=== PATIENT | male | born 1965 | race Caucasian/White ===

== ENCOUNTER 2024-06-01 18:02 | Day surgery (SDC) | payer MEDICAID, SELFPAY ==
[2024-06-01] VITALS (12 sets, daily range): BP systolic 123–178; BP diastolic 48–94; PULSE 83–117; RESP 18–97; TEMP 36.6–36.7; O2SAT 93–100
--- NOTE | ~2024-06-01 | XR_ITS ---
EXAMINATION: XR chest 1V portable Exam Date/Time: 06/01/2024 18:43 CDT HISTORY: sob, food bolus Comparison: 07/17/2015. RESULT: Lines, tubes, and devices: Partially visualized spinal hardware. Punctate radiopacities project over the left shoulder, and chronic finding. Lungs and pleura: Clear. Cardiomediastinal silhouette: Stable. Other: No acute osseous or upper abdominal finding. IMPRESSION: No acute cardiopulmonary process. Reviewed, dictated and finalized at location K.
--- OUTSIDE RECORDS SUMMARY | 2024-06-01 18:05 | XMS_ITS | Encounter Summary ---
Author Organization [facility] Address [address] [place] [address] Care Team Providers Care Assayer Helper Name Role Phone Estevan Sabillon MD Primary Care Provider Ibrahima enamorado Encounter Details Date Type Department Care Team (Latest Contact Info) Description 01/08/2018 Abstract [facility] , Tatiana Coates MD Social History Tobacco Use Types Packs/Day Years Used Date Smoking Tobacco: Never Assessed Sex and Gender Information Value Date Recorded Sex Assigned at Not on file Legal Sex Male 8:42 PM CDT Gender Identity Not on file Sexual Orientation Not on file documented as of this encounter Plan of Treatment Not on file documented as of this encounter Visit Diagnoses Not on filedocumented in this encounter Care Teams Assayer Helper Relationship Specialty Start Date End Date Estevan Sabillon MD PCP - General 09/17/14 documented as of this encounter
--- OUTSIDE RECORDS SUMMARY | 2024-06-01 18:05 | XMS_ITS | Clinical Summary ---
Author Organization [facility] Address [address] [place] [address] Care Team Providers Care Cylinder Block Hole Reliner Name Role Phone Rich Guevara RN Primary Care Provider Ibrahima enamorado Source Comments [facility]non-owned Affiliates and Associated Physician Practices is amultiple site organization consisting of ambulatory clinics and hospital sitesin [place], [place], [place] and [place]. This disclosure is being madepursuant to the Care Everywhere program and may not contain all information available regarding this patient. Last updated 17.[facility] Medications * Be aware that medications may not be up to date on this document. Alwaysverify current medications with the patient. Medication Sig Dispensed Refills Start Date End Date Status oxyCODONE-acetaminophe n (PERCOCET) 10-325 MG tablet Take 1 tablet by mouth q4h PRN. 04/17/2016 Active Social History Tobacco Use Types Packs/Day Years Used Date Smoking Tobacco: Every Day Sex and Gender Information Value Date Recorded Sex Assigned at Not on file Gender Identity Not on file Sexual Orientation Not on file Last Filed Vital Signs Vital Sign Reading Time Taken Comments Blood Pressure - - Pulse - - Temperature - - Respiratory Rate - - Oxygen Saturation - - Inhaled Oxygen Concentration - - Weight 65.8 kg (145 lb) 04/17/2016 10:12 AM MARKET CONSULTANT Height 167.6 cm (5' 6 ) 04/17/2016 10:12 AM MARKET CONSULTANT Body Mass Index 23.4 04/17/2016 10:12 AM MARKET CONSULTANT Plan of Treatment Health Maintenance Due Date Last Done Comments COLOGUARD (AGES 45-75) - COL ON CA SCREENING 1964 COLON MONITORING 1964 COLONOSCOPY - COLON CA SCREENING 1964 CT COLONOGRAPHY - COLON CA SCREENING 1964 Colorectal Cancer Screening 1964 FIT - COLON CA SCREENING 1964 FLEX SIG - COLON CA SCREENING 1964 LIPID TESTING 1964 HIV SCREENING 11/02/1979 HEPATITIS C SCREENING 10/28/1982 DTAP/TDAP/TD VACCINES (1 - Tdap) 11/02/1983 HEPATITIS B VACCINE (1 of 3 - 19+ 3-dose series) 11/02/1983 PNEUMOCOCCAL VACCINE (1 of 2 - PCV) 11/02/1983 PNEUMOCOCCAL VACCINE 50+ (1 of 1 - PCV) 2014 ZOSTER VACCINE (1 of 2) 2014 COVID-19 VACCINE (1 - 2023-2 5 season) 2023 INFLUENZA VACCINE (#1) 2023 DEPRESSION SCREENING 03/05/2024 HIB VACCINE Aged Out No longer eligi ble based on patient's age to complete this topic HPV VACCINE Aged Out No longer eligi ble based on patient's age to complete this topic MENINGOCOCCAL (Group B) VACC INE SHARED DECISION-MAKING Aged Out No longer eligibl e based on patient's age to complete this topic MENINGOCOCCAL GROUPS A/C/Y/W VACCINE Aged Out No longer eligible b ased on patient's age to complete this topic Care Teams Cylinder Block Hole Reliner Relationship Specialty Start Date End Date Rich Guevara, RN PCP - General 04/17/16
--- OUTSIDE RECORDS SUMMARY | 2024-06-01 18:05 | XMS_ITS | Clinical Summary ---
Author Organization [facility] Address [address] [place] [address] Phone Care Team Providers Care Spanner Operator Name Role Phone Unavailable Primary Care Provider Unavailabl e Allergies No known active allergies Medications gabapentin (NEURONTIN) 300 MG CapsuleIndicati ons:Chronic pain syndrome Take 1 Cap by mouth 2 times daily. Start with one nightly for 1 week, then may increase to the BID dosing as above. 60 Cap 1 8 Active cyclobenzaprine (FLEXERIL) 10 MG TabletIndicatio ns:Chronic pain syndrome Take 1 Tab by mouth 3 times daily as needed for Muscle spasms. Muscle Relaxant; causes drowsiness 90 Tab 8 Active Active Problems Problem Noted Date Diagnosed Date History of lumbar spinal fusion 06/18/2017 History of thoracic spinal fusion 06/18/2017 Marijuana user 06/18/2017 Chronic midline low back pain without sciatica 0 06/18/2017 Chronic pain syndrome 06/18/2017 Family History Medical History Relation Name Comments No Known Problems Father Cancer Mother Relation Name Status Comments Father Mother Alive Social History Tobacco Use Types Packs/Day Years Used Date Smoking Tobacco: Every Day Smokeless Tobacco: Never Alcohol Use Standard Drinks/Week Comments No 0 (1 standard drink = 0.6 oz pur e alcohol) Sex and Gender Information Value Date Recorded Sex Assigned at Not on file Legal Sex Male 9:43 AM LINING CLEANER Gender Identity Not on file Sexual Orientation Not on file Last Filed Vital Signs Vital Sign Reading Time Taken Comments Blood Pressure 108/70 06/18/2017 2:40 PM CDT Pulse 87 06/18/2017 2:40 PM CDT Temperature 36 C (96.8 F) 06/18/2017 2:40 PM CDT Respiratory Rate 20 06/18/2017 2:40 PM CDT Oxygen Saturation 98% 06/18/2017 2:40 PM CDT Inhaled Oxygen Concentration - - Weight 63.2 kg (139 lb 4.8 oz) 06/18/2017 2:40 P M CDT Height 167.6 cm (5' 6 ) 06/18/2017 2:40 PM CDT Body Mass Index 22.48 06/18/2017 2:40 PM CDT Plan of Treatment Health Maintenance Due Date Last Done Comments Hepatitis C Virus (HCV) Screening 1964 TdaP Immunization 1964 Hepatitis B Immunization (1 of 3 - 19+ 3-dose series) 11/02/1983 Colonoscopy 2009 Colorectal Cancer Screening 2009 Cologuard 2014 Immunochemical Fecal Occult Blood 2014 Pneumococcal Immunization (5 0+ years) (1 of 1 - PCV) 2014 Zoster Immunization (1 of 2) 2014 Influenza Immunization (#1) 2023 SARS-COV-2 Immunization ( - season) 2023 Respiratory Syncytial Virus (RSV) Immunization (Adult) (1 - 1-dose 75+ series) 11/02/2039 Meningococcal Immunization (ACWY) Aged Out No longer eligible based on patient's age to complete this topic Rotavirus Immunization Aged Out No lo nger eligible based on patient's age to complete this topic Insurance MEDICAID [employer]
--- OUTSIDE RECORDS SUMMARY | 2024-06-01 18:05 | XMS_ITS | Clinical Summary ---
Author Organization [facility] Address [address] [place] [address] Care Team Providers Care Senior User Experience Architect Name Role Phone Estevan Sabillon MD Primary Care Provider Ibrahima lable Allergies No known active allergies Medications No known medications Active Problems Problem Noted Date Diagnosed Date Purposeful non-suicidal drug ingestion, initial encounter ([facility]) 04/28/2018 Immunizations Name Administration Dates Next Due Afluria 36 MONTHS+ (Prefille d Syringe IIV4) 04/29/2018(Deferred: Patient/family declined) Social History Tobacco Use Types Packs/Day Years Used Date Smoking Tobacco: Every Day Cigarettes 1 40 Smokeless Tobacco: Never Alcohol Use Standard Drinks/Week Comments No 0 (1 standard drink = 0.6 oz pur e alcohol) AUDIT-C Answer Date Recorded Frequency of Alcohol Consumption Never 04/28/2018 Average Number of Drinks Not on file 019 Frequency of Binge Drinking Not on file 04/06 Sex and Gender Information Value Date Recorded Sex Assigned at Not on file Legal Sex Male 8:42 PM CDT Gender Identity Not on file Sexual Orientation Not on file Last Filed Vital Signs Vital Sign Reading Time Taken Comments Blood Pressure 126/77 04/30/2018 3:12 PM PRODUCE WRAPPER Pulse 89 04/30/2018 3:12 PM PRODUCE WRAPPER Temperature 36.4 C (97.5 F) 04/30/2018 3:12 PM PRODUCE WRAPPER Respiratory Rate 17 04/30/2018 3:12 PM PRODUCE WRAPPER Oxygen Saturation 96% 04/30/2018 3:12 PM PRODUCE WRAPPER Inhaled Oxygen Concentration - - Weight 69 kg (152 lb 1.9 oz) 04/30/2018 5:00 AM PRODUCE WRAPPER Height 165.1 cm (5' 5 ) 04/28/2018 5:32 AM PRODUCE WRAPPER Body Mass Index 25.31 04/28/2018 5:32 AM PRODUCE WRAPPER Plan of Treatment Health Maintenance Due Date Last Done Comments Colorectal Cancer Screening Colonoscopy (10 Years) 1964 Annual Physical 11/02/1967 Pneumococcal Vaccine: Pediat rics (0 to 5 Years) and At-Risk Patients (6 to 64 Years) (1 of 2 - PCV) 1970 Hepatitis C 1982 DTaP, Tdap and Td Vaccines ( 1 - Tdap) 11/02/1983 Zoster Vaccines (1 of 2) 2014 COVID-19 Vaccine (1 - 2023-2 5 season) 2023 Meningococcal B Vaccine Aged Out No l onger eligible based on patient's age to complete this topic Meningococcal Vaccine Aged Out No suzan ke eligible based on patient's age to complete this topic RSV Immunizations Under 20 Months Aged Out No longer eligible based on patient's age to complete this topic Insurance Advance Directives * Full Code (Latest Code Status on File) Date Activated Date Inactivated Comments 04/28/2018 10:30 AM 04/30/2018 10:24 PM Care Teams Senior User Experience Architect Relationship Specialty Start Date End Date Estevan Sabillon MD PCP - General 09/17/14
--- NOTE | 2024-06-01 18:18 | ED.GENADULT ---
HPI - General Adult General Chief complaint: Unspecified <ESTRADA Herrera Last Filed: 06/01/24 20:47> Stated complaint: feels like throat closing-wheezing, SHOB <ESTRADA Herrera Last Filed: 06/01/24 20:47> Time Seen by Provider: 06/01/24 18:17 <ESTRADA Herrera Last Filed: 06/01/24 20:47> Source: patient <ESTRADA Herrera Last Filed: 06/01/24 20:47> Mode of arrival: ambulatory <ESTRADA Herrera Last Filed: 06/01/24 20:47> Limitations: no limitations <ESTRADA Herrera Last Filed: 06/01/24 20:47> History of Present Illness HPI narrative: Patient is a 58 y/o male who presents to the ED with c/o difficulty swallowing. Patient reports he was eating a [employer] hamburger around 1230-1pm today when he began having difficulty swallowing. States he vomited up the hamburger and has been unable to keep down food and drink since then. Having trouble keeping down his secretions. Reports frequent spitting, coughing, gagging. States he had similar symptoms in the past but has never had endoscopy. Had an episode yesterday which lasted approximately 30 minutes before resolving. Has previously been on gerd medication. Notes he was recently released from care home. <ESTRADA Herrera Last Filed: 06/01/24 20:47> Related Data Allergies/adverse reactions: Allergies Allergy/AdvReac Type Severity Reaction Status Date / Time No Known Allergies Allergy Verified 06/01/24 20:14 <ESTRADA Herrera Last Filed: 06/01/24 20:47> Review of Systems Review of Systems: All systems reviewed & are unremarkable except as noted in HPI. <ESTRADA Herrera Last Filed: 06/01/24 20:47> All systems reviewed & are unremarkable except as noted in HPI and below <ESTRADA Herrera Filed: 06/01/24 20:47> Exam Narrative: GENERAL: Ill/uncomfortable appearing, well-nourished, non-toxic, in no acute distress. HEAD: Normocephalic, atraumatic. RESPIRATORY: Airway patent, respirations tachypnea. Upper airway gurgling and borderline intermittent stridor. Frequent coughing and gagging. Lung sounds are relatively clear. CARDIOVASCULAR: Tachycardic with regular rhythm without murmurs, rubs, or gallops. MUSCULOSKELETAL: Moves all extremities. No gross deformities. SKIN: Warm, dry, normal color. NEURO: A&O X3. Speech clear PSYCHIATRIC: Appropriate mood and affect. Normal interaction. <Jacinta Hoyos PA-C - Last Filed: 06/01/24 20:47> Course CHUTE PULLER/PA Physician Supervision I agree with midlevel documentation; I performed the medical decision making component of this evaluation. I had independent [id number] time with the patient and performed my own independent evaluation and assessment. Patient presented with signs and symptoms of a food bolus impaction. He has had similar episodes like this happened over the past most recently yesterday but this was short-lived. Currently persistent. Is retching and vomiting with spitting up of clear phlegm at this time. Attempted conservative therapies including intramuscular glucagon and oral dissolved nitroglycerin for soft muscle dilatation of the esophagus. He immediately had vomiting upon trying to take any sips of water or solutions. C Consultant Dr. Naylor was made aware of patient's presentation and need for urgent endoscopy for suspected food bolus impaction given that he is vomited several times and had episodes of desaturation with concern for aspirate. Chest x-ray does not show any consolidations but could have some pneumonitis component. Endoscopy suite was activated. Please see dictation by midlevel provider for complete care. <Prakash Madrid MD - Last Filed: 06/01/24 21:11> Vital Signs Vital signs: Vital Signs Temperature 36.7 C 06/01/24 18:06 Pulse Rate 101 H 06/01/24 18:06 Respiratory Rate 97 H 06/01/24 18:06 Blood Pressure 142/85 H 06/01/24 18:06 Pulse Oximetry 97 06/01/24 18:06 Oxygen Delivery Room Air 06/01/24 18:06 Temperature 36.6 C 06/01/24 20:15 Pulse Rate 94 06/01/24 20:15 Respiratory Rate 20 06/01/24 20:15 Blood Pressure 132/68 06/01/24 20:15 Pulse Oximetry 96 06/01/24 20:15 Oxygen Delivery Room Air 06/01/24 20:15 <Jacinta Hoyos PA-C - Last Filed: 06/01/24 20:47> Vital Signs Temperature 36.7 C 06/01/24 18:06 Pulse Rate 101 H 06/01/24 18:06 Respiratory Rate 97 H 06/01/24 18:06 Blood Pressure 142/85 H 06/01/24 18:06 Pulse Oximetry 97 06/01/24 18:06 Oxygen Delivery Room Air 06/01/24 18:06 Temperature 36.6 C 06/01/24 20:15 Pulse Rate 94 06/01/24 20:15 Respiratory Rate 20 06/01/24 20:15 Blood Pressure 132/68 06/01/24 20:15 Pulse Oximetry 96 06/01/24 20:15 Oxygen Delivery Room Air 06/01/24 20:15 <Prakash Madrid MD - Last Filed: 06/01/24 21:11> Medical Decision Making MDM Narrative Medical decision making narrative: Patient presented to ED with concern for possible food bolus. Began after eating [employer] hamburger today. Having difficulty maintaining secretions. Unable to keep down any food or drink. Attempted glucagon and nitroglycerin solution. Patient immediately began vomiting with any attempt at swallowing even small sips of water. Forceful coughing and gagging. Did have an episode of forceful coughing in which his oxygen saturation dropped briefly into the mid 80s. He did rebound quickly and no supplemental oxygen was required. Chest x-ray is clear at this time. Discussed case with Dr. Naylor, GI, will take to endoscopy suite for suspected food bolus. Patient in agreement with plan. From ED to GI suite. <ESTRADA Herrera Last Filed: 06/01/24 20:47> Medical Records Medical records reviewed: Yes I reviewed the external patient's medical records. <ESTRADA Herrera Last Filed: 06/01/24 20:47> Vital Signs Vital Signs: Vital Signs Temperature 36.7 C 06/01/24 18:06 Pulse Rate 101 H 06/01/24 18:06 Respiratory Rate 97 H 06/01/24 18:06 Blood Pressure 142/85 H 06/01/24 18:06 Pulse Oximetry 97 06/01/24 18:06 Oxygen Delivery Room Air 06/01/24 18:06 Temperature 36.6 C 06/01/24 20:15 Pulse Rate 94 06/01/24 20:15 Respiratory Rate 20 06/01/24 20:15 Blood Pressure 132/68 06/01/24 20:15 Pulse Oximetry 96 06/01/24 20:15 Oxygen Delivery Room Air 06/01/24 20:15 <Jacinta Hoyos PA-C - Last Filed: 06/01/24 20:47> Vital Signs Temperature 36.7 C 06/01/24 18:06 Pulse Rate 101 H 06/01/24 18:06 Respiratory Rate 97 H 06/01/24 18:06 Blood Pressure 142/85 H 06/01/24 18:06 Pulse Oximetry 97 06/01/24 18:06 Oxygen Delivery Room Air 06/01/24 18:06 Temperature 36.6 C 06/01/24 20:15 Pulse Rate 94 06/01/24 20:15 Respiratory Rate 20 06/01/24 20:15 Blood Pressure 132/68 06/01/24 20:15 Pulse Oximetry 96 06/01/24 20:15 Oxygen Delivery Room Air 06/01/24 20:15 <Prakash Madrid MD - Last Filed: 06/01/24 21:11> Imaging Data Attestation: I personally reviewed and interpreted this imaging study as follows: <Jacinta Hoyos PA-C - Last Filed: 06/01/24 20:47> Radiologist's impression: ITS Impressions Chest X-Ray 06/01/24 19:11 IMPRESSION: No acute cardiopulmonary process. <ESTRADA Herrera Last Filed: 06/01/24 20:47> Discharge Plan Discharge Clinical Impression: Food impaction of esophagus Qualifiers: Encounter type: initial encounter Qualified Code(s): T18.128A - Food in esophagus causing other injury, initial encounter <ESTRADA Herrera Last Filed: 06/01/24 20:47> Patient Disposition: Other <ESTRADA Herrera Last Filed: 06/01/24 20:47> Condition: Serious <ESTRADA Herrera Last Filed: 06/01/24 20:47> Instructions: Antibiotic Form <ESTRADA Herrera Last Filed: 06/01/24 20:47> Patient Language: Citizen Of [place] <ESTRADA Herrera Last Filed: 06/01/24 20:47> Follow-up/Referrals: PHYSICIAN NOT ON STAFF,NONSTAFF [Primary Care Provider] - <ESTRADA Herrera Last Filed: 06/01/24 20:47>
[2024-06-01] MEDS: ONDANSETRON INJ 4 MG/2 ML VIAL IV PUSH (18:30)
[2024-06-01] MEDS: NITROGLYCERIN SL 0.4 MG TABLET SUBLINGUAL (18:31)
[2024-06-01] MEDS: GLUCAGON FOR INJ 1 MG VIAL IM (18:31)
--- OUTSIDE RECORDS SUMMARY | 2024-06-01 19:53 | XMS_ITS | Clinical Summary ---
Author Organization [facility] Address [address] [place] [address] Care Team Providers Care Balance Clerk Name Role Phone Estevan Sabillon MD Primary Care Provider Ibrahima lable Allergies No known active allergies Medications No known medications Active Problems Problem Noted Date Diagnosed Date Purposeful non-suicidal drug ingestion, initial encounter ([facility]) 04/28/2018 Immunizations Name Administration Dates Next Due [...] Comments Blood Pressure 126/77 04/30/2018 3:12 PM CONSTRUCTION MANAGER Pulse 89 04/30/2018 3:12 PM CONSTRUCTION MANAGER Temperature 36.4 C (97.5 F) 04/30/2018 3:12 PM CONSTRUCTION MANAGER Respiratory Rate 17 04/30/2018 3:12 PM CONSTRUCTION MANAGER Oxygen Saturation 96% 04/30/2018 3:12 PM CONSTRUCTION MANAGER Inhaled Oxygen Concentration - - Weight 69 kg (152 lb 1.9 oz) 04/30/2018 5:00 AM CONSTRUCTION MANAGER Height 165.1 cm (5' 5 ) 04/28/2018 5:32 AM CONSTRUCTION MANAGER Body Mass Index 25.31 04/28/2018 5:32 AM CONSTRUCTION MANAGER Plan of Treatment Health Maintenance Due Date [...] 10:30 AM 04/30/2018 10:24 PM Care Teams Balance Clerk Relationship Specialty Start Date End Date Estevan Sabillon MD PCP - General 09/17/14
--- OUTSIDE RECORDS SUMMARY | 2024-06-01 19:53 | XMS_ITS | Clinical Summary ---
Author Organization [facility] Address [address] [place] [address] Care Team Providers Care Central Supply Manager Name Role Phone Rich Guevara RN Primary Care Provider Ibrahima enamorado Source Comments [facility],non-owned Affiliates and Associated Physician Practices is amultiple site organization consisting of ambulatory clinics and hospital sitesin [place], [place], [place] and [place]. This disclosure is being madepursuant to the Care Everywhere program and may not contain all information available regarding this patient. Last updated 17.[facility] Medications * Be aware that medications may [...] 65.8 kg (145 lb) 04/17/2016 10:12 AM FISHING GAME WARDEN Height 167.6 cm (5' 6 ) 04/17/2016 10:12 AM FISHING GAME WARDEN Body Mass Index 23.4 04/17/2016 10:12 AM FISHING GAME WARDEN Plan of Treatment Health Maintenance Due Date [...] age to complete this topic Care Teams Central Supply Manager Relationship Specialty Start Date End Date Rich Guevara, RN PCP - General 04/17/16
--- OUTSIDE RECORDS SUMMARY | 2024-06-01 19:53 | XMS_ITS | Encounter Summary ---
Author Organization [facility] Address [address] [place] [address] Care Team Providers Care Chief Operating Officer Name Role Phone Estevan Sabillon MD Primary Care Provider Ibrahima enamorado Encounter Details Date Type Department Care Team (Latest Contact Info) Description 01/08/2018 Abstract [facility] , Tatiana Coates MD [...] on filedocumented in this encounter Care Teams Chief Operating Officer Relationship Specialty Start Date End Date Estevan Sabillon MD PCP - General 09/17/14 documented as of this encounter
--- OUTSIDE RECORDS SUMMARY | 2024-06-01 19:53 | XMS_ITS | Clinical Summary ---
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
--- NOTE | 2024-06-01 19:55 | PC.NURSE ---
patient notified by this rn to find a ride home for after procedure. pt verbalized understanding at this time.
[2024-06-01] MEDS: LACTATED RINGERS 1,000 ML 150 ML IV CONT (20:20)
--- OUTSIDE RECORDS SUMMARY | 2024-06-01 21:27 | XMS_ITS | Clinical Summary ---
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
--- OUTSIDE RECORDS SUMMARY | 2024-06-01 21:27 | XMS_ITS | Clinical Summary ---
Author Organization [facility] Address [address] [place] [address] Care Team Providers Care Hot Plate Plywood Press Laborer Name Role Phone Estevan Sabillon MD Primary Care Provider Ibrahima lable Allergies No known active allergies Medications No known medications Active Problems Problem Noted Date Diagnosed Date Purposeful non-suicidal drug ingestion, initial encounter ([facility]) 04/28/2018 Immunizations Name Administration Dates [...] Comments Blood Pressure 126/77 04/30/2018 3:12 PM ECG TECHNICIAN Pulse 89 04/30/2018 3:12 PM ECG TECHNICIAN Temperature 36.4 C (97.5 F) 04/30/2018 3:12 PM ECG TECHNICIAN Respiratory Rate 17 04/30/2018 3:12 PM ECG TECHNICIAN Oxygen Saturation 96% 04/30/2018 3:12 PM ECG TECHNICIAN Inhaled Oxygen Concentration - - Weight 69 kg (152 lb 1.9 oz) 04/30/2018 5:00 AM ECG TECHNICIAN Height 165.1 cm (5' 5 ) 04/28/2018 5:32 AM ECG TECHNICIAN Body Mass Index 25.31 04/28/2018 5:32 AM ECG TECHNICIAN Plan of Treatment Health Maintenance Due Date [...] 10:30 AM 04/30/2018 10:24 PM Care Teams Hot Plate Plywood Press Laborer Relationship Specialty Start Date End Date Estevan Sabillon MD PCP - General 09/17/14
--- OUTSIDE RECORDS SUMMARY | 2024-06-01 21:27 | XMS_ITS | Encounter Summary ---
Author Organization [facility] Address [address] [place] [address] Care Team Providers Care Restaurant Associate Name Role Phone Estevan Sabillon MD Primary Care Provider Ibrahima enamorado Encounter Details Date Type Department Care Team (Latest Contact Info) Description 01/08/2018 Abstract [facility] , Tatiana Coates MD [...] on filedocumented in this encounter Care Teams Restaurant Associate Relationship Specialty Start Date End Date Estevan Sabillon MD PCP - General 09/17/14 documented as of this encounter
--- OUTSIDE RECORDS SUMMARY | 2024-06-01 21:27 | XMS_ITS | Clinical Summary ---
Author Organization [facility] Address [address] [place] [address] Care Team Providers Care Pharmaceutical Detailer Name Role Phone Rich Guevara RN Primary Care Provider Ibrahima enamorado Source Comments [facility],non-owned Affiliates and Associated Physician Practices is amultiple site organization consisting of ambulatory clinics and hospital sitesin [place], [place], [place] and [place]. This disclosure is being madepursuant to the Care Everywhere program and may not contain all information available regarding this patient. Last updated 17.[facility] Medications * Be aware that medications may [...] 65.8 kg (145 lb) 04/17/2016 10:12 AM VIDEO JOURNALIST Height 167.6 cm (5' 6 ) 04/17/2016 10:12 AM VIDEO JOURNALIST Body Mass Index 23.4 04/17/2016 10:12 AM VIDEO JOURNALIST Plan of Treatment Health Maintenance Due Date [...] age to complete this topic Care Teams Pharmaceutical Detailer Relationship Specialty Start Date End Date Rich Guevara, RN PCP - General 04/17/16
--- NOTE | 2024-06-03 15:18 | WPDGICN ---
Assessment and Plan Assessment and plan (1) Food impaction of esophagus: Qualifiers: Encounter type: initial encounter Qualified Code(s): T18.128A - Food in esophagus causing other injury, initial encounter; W44.F3XA - Food entering into or through a natural orifice, initial encounter Code(s): T18.128A - Food in esophagus causing other injury, initial encounter; W44.F3XA - Food entering into or through a natural orifice, initial encounter Status: Acute Assessment and Plan: Evidence of food impaction, the plan is to perform EGD with anesthesia assistance, likely intubation. GI Consult Note Consult date/time: 06/03/24 15:18 - note corresponding to History and Physical from 06/01/24 HPI: Maxx Gastelum is a 58 year old male who has been experiencing intermittent dysphagia, progressive worsening. This afternoon he was eating a cheeseburger and felt that he could not swallow any more food , liquids or even his own saliva. He is here for food impaction after emergency room staff has tried many noninvasive measures such as glucagon and nitroglycerin. Review of Systems Review of Systems: All systems reviewed & are unremarkable except as noted in HPI and below Meds Home Medications and Allergies Home Medications ?Medication ?Instructions ?Recorded ?Confirmed ?Type omeprazole 40 mg capsule,delayed 40 mg PO DAILY #30 caps 06/02/24 Rx release Allergies Allergy/AdvReac Type Severity Reaction Status Date / Time No Known Allergies Allergy Verified 06/01/24 20:14 Exam Narrative: GENERAL: Ill/uncomfortable appearing, well-nourished, non-toxic, in no acute distress. HEAD: Normocephalic, atraumatic. RESPIRATORY: Airway patent, respirations tachypnea. Upper airway gurgling and borderline intermittent stridor. Frequent coughing and gagging. Lung sounds are relatively clear. CARDIOVASCULAR: Tachycardic with regular rhythm without murmurs, rubs, or gallops. MUSCULOSKELETAL: Moves all extremities. No gross deformities. SKIN: Warm, dry, normal color. NEURO: A&O X3. Speech clear PSYCHIATRIC: Appropriate mood and affect. Normal interaction.
== END 2024-06-01 22:12 | disposition home or self-care (01) ==
LOC: ANHED 19:51 → ANHSURGERY 21:25
PROVIDERS: Emergency Provider Physician Assistant; Visit Provider Internal Medicine Gastroenterology
PROC: 0DJ08ZZ Inspection of Upper Intestinal Tract, Via Natural or Artificial Opening Endoscopic (ICD-10-PCS; CPT 43247; principal; 2024-06-01 20:00)
DX: T18.128A Food in esophagus causing other injury, initial encounter (principal); K22.70 Barrett's esophagus without dysplasia; K21.00 Gastro-esophageal reflux disease with esophagitis, without bleeding; W44.F3XA Food entering into or through a natural orifice, initial encounter
CPT/HCPCS: 43247; 43239; 71045; 88305; 96372; 96374; 99285; A9270; J0330; J1100; J1610; J2405; J2704; J7120

== ENCOUNTER 2024-10-25 19:30 | Emergency (ER) | payer OTHER, SELFPAY ==
--- OUTSIDE RECORDS SUMMARY | 2013-07-06 12:27 | XMS_ITS | Continuity of Care Document ---
Author Organization [facility] Address [address] [place] [address] [place] [address] Phone Care Team Providers Care Conversion Man Name Role Phone Chandler Miller MD Unavailable Unavailable Allergies, Adverse Reactions, Alerts Substance Reaction Status Criticality No Known Allergies Active No Inform ation Medications Medication Instructions Dosage Effective Dates (start - stop) Status Comments Percocet 10 mg-325 mg tablet take 1 tablet by oral route every 6 hours as needed 1.00 tablet - Active PRN for pain, avoid driving or operate machines Lexapro 10 mg tablet take 1 tablet (10MG) by oral route every day 10 MG - Active Procedures Procedure Date OFFICE/OUTPATIENT VISIT, EST PREV VISIT, NEW, AGE 40-64 Advance Directives Directive Yes / No Effective Date File Name No Information Encounters Encounter Description Practice Location Reason(s) For Visit Diagnoses Date Provider Providers Copied on Encounter [facility], [address] [place], [address], tel:[phone] [facility] No Information 4 Paul Arteaga. [address], [place], [place], [address] , [place]. tel:[phone] Referring Provider: Chandler Miller, [address], [place], [place], [address]. tel:[phone] OFFICE/OUTPAT IENT VISIT, EST [facility], [address] [place], [address], tel:[phone] [facility] back pain (chief complaint) hematuria (chief complaint) anxiety (chief complaint) LumbagoMajor depressive affective disorder, single episode, mild degreeHEMATURIA NOS 4 Paul [facility]aga. [address] [facility] [place], [address] , . tel:[phone] Referring Provider: Chandler Miller [address], [place], [place], [address]. tel:[phone] PREV VISIT, NEW, AGE 40-64 [facility], [address], [place], [place], [address], [phone] [facility] Physical (chief complaint) Routine Medical ExamRoutine Medical Exam 4 Paul Arteaga. [address], [facility] [place], [address] , [place]. tel:[phone] Family History Family Member Type Diagnosis Age At Onset Mother Problem (finding) Coronary artery disease Mother Problem (finding) Other Sister Problem (finding) Cancer, brain Mother Problem (finding) Cancer, breast Father Problem (finding) Alzheimer's Disease Payers Payer name Insurance type Covered constitution party ID Authoriza tion(s) No Information Social History Type Description Quantity Date Captured Comments Sex Male Smoking Status No Information Chief Complaint And Reason For Visit No Information Plan Of Treatment Date Type Action Status Goal Tobacco cessation counseling completed Goal Tobacco cessation counseling completed History Of Present Illness Encounter Date Complaint History Of Prese nt Illness No Information Instructions Date Instruction Additional Infor mation No Information Assessments Type Assessment Date No Information
--- OUTSIDE RECORDS SUMMARY | 2013-07-06 12:27 | XMS_ITS | Continuity of Care Document ---
Author Organization [facility] Address [address] [place] [address] [place] [address] Phone Care Team Providers Care Threat Analyst Name Role Phone Chandler Miller MD Unavailable Unavailable Allergies, Adverse Reactions, Alerts Substance Reaction Status Criticality No Known Allergies Active No Inform ation Medications Medication Instructions Dosage Effective Dates (start - stop) Status Comments Lexapro 10 mg tablet take 1 tablet (10MG) by oral route every day 10 MG - Active Percocet 10 mg-325 mg tablet take 1 tablet by oral route every 6 hours as needed 1.00 tablet - Active PRN for pain, avoid driving or operate machines Procedures Procedure Date OFFICE/OUTPATIENT VISIT, EST PREV VISIT, NEW, AGE 40-64 Advance Directives Directive Yes / No Effective Date File Name No Information Encounters Encounter Description Practice Location Reason(s) For Visit Diagnoses Date Provider Providers Copied on Encounter [facility], [address] [place], [address], tel:[phone] [facility] No Information 4 Paul Arteaga. [address], [place], [place], [address] , [place]. tel:[phone] Referring Provider: Chandler Miller, [address], [place], [place], [address]. tel:[phone] OFFICE/OUTPAT IENT VISIT, EST [facility], [address] [place], [address], tel:[phone] [facility] back pain (chief complaint) hematuria (chief complaint) anxiety (chief complaint) LumbagoMajor depressive affective disorder, single episode, mild degreeHEMATURIA NOS 4 Paul Arteaga. [address] [facility] [place], [address] , . tel:[phone] Referring Provider: Chandler Miller [address], [place], [place], [address]. tel:[phone] PREV VISIT, NEW, AGE 40-64 [facility], [address], [place], [place], [address], [phone] [facility] Physical (chief complaint) Routine Medical ExamRoutine Medical Exam 4 Paul Arteaga. [address], [facility] [place], [address] , [place]. tel:[phone] Family History Family Member Type Diagnosis Age [...]
--- NOTE | ~2024-10-25 | XR_ITS ---
XR elbow RT min 3V 10/25/2024 20:42 Indication: Dog bite Procedure: 3 views right elbow Comparison: 01/19/2021 Findings: No acute fracture or traumatic malalignment. There is soft tissue gas adjacent to the elbow, consistent with recent dogbite. No foreign bodies. Impression: 1: Subcutaneous gas adjacent to the elbow, consistent with recent dogbite. No underlying fracture. Reviewed, dictated and finalized at location O. Impression: 1: Subcutaneous gas adjacent to the elbow, consistent with recent dogbite. No u nderlying fracture.
--- OUTSIDE RECORDS SUMMARY | 2024-10-25 19:32 | XMS_ITS | Clinical Summary ---
Author Organization [facility] Address [address] [place] [address] Phone Care Team Providers Care Supervisor Shipfitters Name Role Phone Muna Jorge BEHZAD Primary Care Provider [phone] Allergies No known active allergies Medications omeprazole (PriLOSEC) 40 mg capsule Take 1 capsule (40 mg total) by mouth daily 5 Active atorvastatin (LIPITOR) 80 mg tabletIndications:M ixed hyperlipidemia Take 1 tablet (80 mg total) by mouth daily 90 tablet [address] (CYMBALTA) 20 mg capsuleIndications: Chronic midline low back pain without sciatica Take 1 capsule (20 mg total) by mouth daily 30 capsule 3 5 Active bisacodyl EC (DULCOLAX EC) 5 mg EC tabletIndications:c onstipation Take 1 tablet (5 mg total) by mouth daily 8 tablet 5 Active Active Problems Problem Noted Date Diagnosed Date Screening for colon cancer 08/04/2024 Screen for colon cancer 07/04/2024 Wellness examination 06/25/2024 Assessment & Plan (06/25/2024 3:34 PM CDT): Routine health maintenance objectives discussed and orders placed for any outstanding screening studies. Physical exam performed as above. Routine annual labs obtained and will be reviewed with patient when results available. Encouraged regular physical activity--moderate activity for a total of 150 minutes per week over 3-5 days. Encouraged healthy diet with regular fresh fruits and vegetables limited in processed carbohydrates. Alcohol use Nicotine use Depression screening History of lumbar spinal fusion 06/24/2024 Overview (06/24/2024): Postoperative appearance of posterior spinal fusion consisting of paired Pedersen rods extending from T11 to L5 are seen with cerclage wires at the T12, L1, L2, and L4 vertebral bodies. There is 6 mm of retrolisthesis of L5 on S1. A compression fracture of L3 vertebral body is seen with approximately 75% height loss and mild kyphosis centered at the L3-L4 disc space. Multilevel degenerative disc disease is seen, most pronounced and moderate to severe at L5-S1. Atherosclerotic calcification of the abdominal aorta is seen. Assessment & Plan (06/25/2024 3:34 PM CDT): Orders: MRI Lumbar Spine WO Contrast; Future History of methamphetamine abuse 06/24/2024 Assessment & Plan (06/25/2024 3:34 PM CDT): Mixed hyperlipidemia 06/24/2024 Assessment & Plan (06/25/2024 3:34 PM CDT): Orders: atorvastatin (LIPITOR) 80 mg tablet; Take 1 tablet (80 mg total) by mouth daily Lipid panel; Future Chronic midline low back pain without sciatica 0 06/24/2024 Assessment & Plan (06/25/2024 3:34 PM CDT): Orders: DULoxetine DR (CYMBALTA) 20 mg capsule; Take 1 capsule (20 mg total) by mouth daily Ambulatory referral to Pain Management; Future MRI Lumbar Spine WO Contrast; Future BMI 26.0-26.9,adult 03/07/2022 Assessment & Plan (06/25/2024 3:34 PM CDT): Follow a heart healthy diet. Dysphagia 03/07/2022 Assessment & Plan (06/25/2024 3:34 PM CDT): Orders: Ambulatory referral to Gastroenterology; Future Resolved Problems Problem Noted Date Diagnosed Date Resolved Date Positive depression screening 03/07/2022 06/24/2024 Screening for thyroid disorder 03/07/2022 06/24/2024 Chronic pain syndrome 09/08/20152024 Encounters Date Type Department Care Team Description 08/04/2024 Orders Only [facility] Gastroenterology at [address] [place] [address] Arnol Santos MD Dysphagia, unspecified type (Primary Dx); Screening for colon cancer 07/30/2024 Telephone [facility] Gastroenterology at [address] [place] [address] Arnol Santos MD 07/29/2024 Orders Only [facility] Gastroenterology at [address] [place] [address] Arnol Santos MD Dysphagia, unspecified type (Primary Dx); Screen for colon cancer from Last 3 Months Immunizations Immunization Administration Dates Next Due Influenza, Unspecified 03/06/2022(Deferr ed: Patient Refused),03/07/2021(Deferred: Patient Refused) Surgical History Surgery Date Site/Laterality Comments OTHER SURGICAL HISTORY Left Left elbow reconstruction OTHER SURGICAL HISTORY Left Left Shoulder repaired OTHER SURGICAL HISTORY Left Steen, Knee and ankle surgery SPINAL FUSION Medical History Medical History Date Comments Cancer (HCC) Heart murmur Hyperlipidemia Family History Medical History Relation Name Comments Cancer Brother Stroke Father Breast cancer Mother Kidney disease Mother Brain cancer Sister Relation Name Status Comments Brother Father Mother Sister Social History Tobacco Use Types Packs/Day Years Used Date Smoking Tobacco: Every Day Cigarettes 0.5 44 Started: 1980 Passive Smoke Exposure: Current Smokeless Tobacco: Never Tobacco Cessation:Ready to Q uit: Not Asked; Counseling Given: Not Answered AUDIT-C Answer Date Recorded Q1: How often do you have a drink containing alcohol? Never 08/18/2024 Q2: How many drinks containi ng alcohol do you have on a typical day when you are drinking? Patient does not drink Q3: How often do you have si x or more drinks on one occasion? 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 Gender Identity Not on file Sexual Orientation Not on file Occupation Industry Job Start Date Job End Date disabled Not on file Not on file Not on file Obstetrics History Last Filed Vital Signs Vital Sign Reading Time Taken Comments Blood Pressure 110/68 06/24/2024 12:45 PM CDT Pulse 75 06/24/2024 12:45 PM CDT Temperature 36.4 C (97.5 F) 06/24/2024 12:45 PM CDT Respiratory Rate 16 06/24/2024 12:45 PM CDT Oxygen Saturation 98% 06/24/2024 12:45 PM CDT Inhaled Oxygen Concentration - - Weight 77.6 kg (171 lb) 06/24/2024 12:45 PM CDT Height 170.2 cm (5' 7) 06/24/2024 12:45 PM CDT Body Mass Index 26.78 06/24/2024 12:45 PM CDT Plan of Treatment Health Maintenance Due Date Last Done Comments Colon Cancer Screening-Colonoscopy 1964 DTaP/Tdap/Td Vaccine (1 - Tdap) 11/02/1975 Hepatitis B Screening 1982 Pneumococcal vaccine <65 (1 of 2 - PCV) 11/02/1983 Lung Cancer Screening 2014 Influenza Vaccine (#1) 2024 Depression Screening 06/24/2025 06/24/2024, 03/07/2022 Regular Well Visit/Exam 18-64 06/24/2025 06/24/2024 Zoster Vaccine (1 of 2) 06/24/2025 Post poned from 2014 (Patient declined, but will receive in the future) Prostate Cancer Screening-PSA 06/24/2026 06/24/2024 Hepatitis C Screening Completed 06/24/2024 Procedures Procedure Name Priority Date/Time Associated Diagnosis Comments HEPATITIS C ANTIBODY Routine 06/24/2024 1:30 PM CDT Need for hepatitis C screening test PSA SCREEN Routine 06/24/2024 1:30 PM CDT Screening for prostate cancer from Last 3 Months or Most Recently Relevant to Health Maintenance Results * PSA screen (06/24/2024 1:30 PM CDT) PSA-Total 0.34 <=3.90 ng/mL Comment: Interpretive Data AGE SEX REFERENCE INTERVAL 0 minutes-150 years Female None 0 minutes-49 years Male None 50-59 years Male 0-3.90 60-69 years Male 0-5.40 70-79 years Male 0-6.20 80-150 years Male 0-6.20 The Eliana PSA Total assay procedure was used. Results from different manufacturers or methods may not be comparable. Serial testing should be performed using the same method. Current interpretive data last revised 21. Blood 06/24/2024 1:30 PM CDT 06/24/2024 10:10 PM CDT [employer] SOLUTIONS CONSULTANT LAB BLOOD ORDERABLES Final Re sult Performing Organization Address [facility] Co de Phone Number ANJU AMBROCIO [id number] [place] [address] * Hepatitis C antibody Blood (06/24/2024 1:30 PM CDT) Hep C Ab Nonreactive Nonreactive Comment: Interpretive Data Nonreactive: Antibodies to HCV not detected. Does NOT exclude the possibility of recent exposure to HCV. Equivocal: Equivocal for HCV antibodies. Supplemental molecular testing will be automatically performed to determine infection status in accordance with current CDC screening recommendations. Reactive: Positive for HCV antibodies. This may represent current or past HCV infection. Supplemental molecular testing will be automatically performed to determine current infection status in accordance with current CDC screening recommendations. Interpretive data was last revised on 2019. Blood 06/24/2024 1:30 PM CDT 06/24/2024 10:10 PM CDT Muna Jorge NP LAB MICROBIOLOGY - GENERAL OR DERABLES Final Result ANEESHEVIN AMBROCIO [id number] [place] [address] from Last 3 Months or Most Recently Relevant to Health Maintenance Insurance [facility] [address] [address] Care Teams Supervisor Shipfitters Relationship Specialty Start Date End Date Muna Jorge NP [address] [address] PCP - General Internal Medicine 06/24/24
--- OUTSIDE RECORDS SUMMARY | 2024-10-25 19:32 | XMS_ITS | Clinical Summary ---
Author Organization [facility] Address [address] [place] [address] Care Team Providers Care Business System Consultant Name Role Phone Rich Guevara RN Primary Care Provider Ibrahima enamorado Source Comments [facility],non-owned Affiliates and Associated Physician Practices is amultiple site organization consisting of ambulatory clinics and hospital sitesin [place], [place], [place] and [place]. This disclosure is being madepursuant to the Care Everywhere program and may not contain all information available regarding this patient. Last updated 17.[facility] Medications * Be aware that medications may not be up to date on this document. Alwaysverify current medications with the patient. oxyCODONE-acetam inophen (PERCOCET) 10-325 MG tablet Take 1 tablet by mouth q4h PRN. 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 Gender Identity Not on file Sexual Orientation Not on file Last Filed Vital Signs Vital Sign Reading Time Taken Comments Blood Pressure - - Pulse - - Temperature - - Respiratory Rate - - Oxygen Saturation - - Inhaled Oxygen Concentration - - Weight 65.8 kg (145 lb) 04/17/2016 10:12 AM FENCE INSTALLER FOREMAN Height 167.6 cm (5' 6) 04/17/2016 10:12 AM FENCE INSTALLER FOREMAN Body Mass Index 23.4 04/17/2016 10:12 AM FENCE INSTALLER FOREMAN Plan of Treatment Health Maintenance Due Date [...] - 19+ 3-dose series) 11/02/1983 PNEUMOCOCCAL VACCINE 50+ (1 of 2 - PCV) 11/02/1983 ZOSTER VACCINE (1 of 2) 2014 COVID-19 VACCINE (1 - 2023-2 5 season) 2023 DEPRESSION SCREENING 03/05/2024 INFLUENZA VACCINE (#1) 2024 HIB VACCINE Aged Out No longer eligi [...] age to complete this topic Insurance MEDICAID - [place] SELF PAY NO INSURANCE Member Subscriber Plan / Payer (Ef fective for All Dates) Name:Maxx Gastelum Member ID:Not on file Relation to Subscriber:Not on file Name:MAXX GASTELUM Subscriber ID:Not on file (Home) Address: [address] [place] [address] Payer ID:Not on file Group ID:Not on file Type:Self Pay Address: [place], [place] Care Teams Business System Consultant Relationship Specialty Start Date End Date Rich Guevara RN PCP - General 04/17/16
--- OUTSIDE RECORDS SUMMARY | 2024-10-25 19:32 | XMS_ITS | Clinical Summary ---
Author Organization [facility] Address [address] [place] [address] Care Team Providers Care Scuba Diver Name Role Phone Estevan Sabillon MD Primary Care Provider Ibrahima lable Allergies No known active allergies Medications No known medications Active Problems Problem Noted Date Diagnosed Date Purposeful non-suicidal drug ingestion, initial encounter ([facility]) 04/28/2018 Immunizations Immunization Administration Dates Next Due Afluria 36 MONTHS+ [...] Comments Blood Pressure 126/77 04/30/2018 3:12 PM BRICKLAYER SUPERVISOR Pulse 89 04/30/2018 3:12 PM BRICKLAYER SUPERVISOR Temperature 36.4 C (97.5 F) 04/30/2018 3:12 PM BRICKLAYER SUPERVISOR Respiratory Rate 17 04/30/2018 3:12 PM BRICKLAYER SUPERVISOR Oxygen Saturation 96% 04/30/2018 3:12 PM BRICKLAYER SUPERVISOR Inhaled Oxygen Concentration - - Weight 69 kg (152 lb 1.9 oz) 04/30/2018 5:00 AM BRICKLAYER SUPERVISOR Height 165.1 cm (5' 5) 04/28/2018 5:32 AM BRICKLAYER SUPERVISOR Body Mass Index 25.31 04/28/2018 5:32 AM BRICKLAYER SUPERVISOR Plan of Treatment Health Maintenance Due Date Last Done Comments Colorectal Cancer Screening Colonoscopy (10 Years) 1964 Annual Physical 11/02/1967 Hepatitis C 1982 DTaP, Tdap and Td Vaccines ( 1 - Tdap) 11/02/1983 Pneumococcal Vaccine: 50+ Ye ars (1 of 2 - PCV) 11/02/1983 Zoster Vaccines (1 of 2) 2014 [...] 10:30 AM 04/30/2018 10:24 PM Care Teams Scuba Diver Relationship Specialty Start Date End Date Estevan Sabillon MD PCP - General 09/17/14
--- OUTSIDE RECORDS SUMMARY | 2024-10-25 19:32 | XMS_ITS | Encounter Summary ---
Author Organization [facility] Address [address] [place] [address] Care Team Providers Care Chicken Sexer Name Role Phone Estevan Sabillon MD Primary Care Provider Ibrahima enamorado Encounter Details Date Type Department Care Team (Latest Contact Info) Description 01/08/2018 Abstract [facility] , Tatiana Coates MD Social [...] on filedocumented in this encounter Care Teams Chicken Sexer Relationship Specialty Start Date End Date Estevan Sabillon MD PCP - General 09/17/14 documented as of this encounter
--- OUTSIDE RECORDS SUMMARY | 2024-10-25 19:32 | XMS_ITS | Clinical Summary ---
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 Gender Identity Not on file Sexual Orientation [...] P M CDT Height 167.6 cm (5' 6) 06/18/2017 2:40 PM CDT Body Mass Index 22.48 06/18/2017 2:40 PM CDT Plan of Treatment Health Maintenance Due Date Last Done Comments Hepatitis C Virus (HCV) Screening 1965 TdaP Immunization 1964 Hepatitis B Immunization (1 of 3 - 19+ 3-dose series) 11/02/1983 Cologuard 2009 Colonoscopy 2009 Colorectal Cancer Screening 2009 Immunochemical Fecal Occult Blood 2009 Pneumococcal Immunization (5 0+ years) (1 of 1 - PCV) 2014 Zoster Immunization (1 of 2) 2014 SARS-COV-2 Immunization (1 - season) 2023 Influenza Immunization (#1) 2024 Respiratory Syncytial Virus (RSV) Immunization (Adult) (1 - 1-dose 75+ series) 11/02/2039 Human Papillomavirus (HPV) Immunization Aged Out No longer eligible b ased on patient's age to complete this topic Meningococcal Immunization (ACWY) Aged Out No longer eligible based on patient's age to complete this topic Rotavirus Immunization Aged Out No lo nger eligible based on patient's age to complete this topic Insurance MEDICAID [facility]
[2024-10-25] MEDS: HYDROcodone/acetaminophen (*CRX) 5-325 MG TABLET 1 TAB PO (19:45)
[2024-10-25] MEDS: AMPICILLIN SODIUM/SULBACTAM 3 GM in SODIUM CHLORIDE 0.9% IV 100 ML 200 ML IVPB (19:55)
--- NOTE | 2024-10-25 20:16 | ED.ANIMALBIT ---
HPI - Animal Bite General Chief Complaint: Animal Bite Stated Complaint: Dog bite to R elbow, r ear Time Seen by Provider: 10/25/24 19:33 History of Present Illness HPI narrative: 58-year-old male presents with dog bite to right elbow and right ear. Patient states this happened at 4:00 a.m this morning but has been unable to get a ride. patient states it use to be his dog and the dogs shots are up to date. patient states it was a pitbull patient is unsure of last tetanus. patient has no other complaints. Onset (ago): hour(s) (14) Animal: dog Description of animal: household pet Mechanism: bite Location - Extremities: Right: elbow Related Data Allergies Allergy/AdvReac Type Severity Reaction Status Date / Time No Known Allergies Allergy Verified 09/11/24 07:44 Review of Systems Review of Systems: A 10 system review of systems was completed on the patient and is negative except for what is stated in the HPI. Nursing and ancillary documentation was reviewed. [facility] Past Medical History Medical History (Updated 10/25/24 @ 20:55 by Kelvin Mcgee APRN) Food impaction of esophagus Chronic back pain Depression Gout Tobacco abuse Spinal cord cancer Surgical History Surgical History (System 09/11/24 @ 07:44 by Lizeth Frazier) History of tonsillectomy Family History Family History (System 09/11/24 @ 07:44 by Lizeth Frazier) Mother Patient's mother is in good health Family history of malignant neoplasm of breast in first degree relative Family history of heart disease in male family member before age 55 Father Patient's father is in good health Social History Social History (System 09/11/24 @ 07:44 by Lizeth Frazier) Smoking status: Current every day smoker Second hand tobacco smoke exposure: Yes Alcohol intake: never Living arrangements: alone Occupation/Education: unemployed Gender identity (if verbalized by the patient): Male Exam Narrative: GENERAL: Well-appearing, well-nourished, and in no acute distress. HEAD: Normocephalic, atraumatic. EYES: PERRLA and EOMI. ENT: Nares clear, no rhinorrhea or epistaxis. Mucous membranes moist. NECK: Supple. CHEST: Clear to auscultation. No respiratory distress. HEART: Regular rate and rhythm. No murmur heard. Normal peripheral pulses. ABDOMEN: Soft, nontender, nondistended, normal active bowel sounds. EXTREMITIES: decreased ROM to right elbow r/t pain. No edema. SKIN: Warm, dry, no rash. 5 cm laceration to right elbow with multiple puncture wounds. No FB visualized. small abrasion to his ear. no active bleeding NEURO: No focal deficits. Alert and oriented x3. PSYCH: Normal mood and affect. Course Course Emergency Course: Will update patient's tetanus. Will give dose of Unasyn IV. Will place sutures to right elbow related to gaping wound. Will give pain medication Procedures Laceration Laceration 1: Date: 10/25/24 Time: 20:21 Site: upper extremity Side (If applicable): right Size (cm): 5 Description: irregular and clean Depth: simple, single layer Local Anesthetic: lidocaine 1% (Ten mls) Amount of anesthesia used (mL): 10 Pre-repair: irrigated ====== Skin Level ====== Skin layer closed with: nylon Size (cm): 5-0 Number of sutures: 5 Technique: simple, interrupted ====== Subcutaneous Layer ====== ====== Muscle Layer ====== ====== Tendon Layer ====== MDM - Animal Bite MDM Narrative Medical decision making narrative: Place 5 sutures to right elbow. wound was left opened r/t dog bite. patient given dose of unasyn via IV and will start on augmentin. Differential Diagnosis Differential diagnosis: Likely bite by animal and dog bite Imaging Data Radiologist's impression: Impression: 1: Subcutaneous gas adjacent to the elbow, consistent with recent dogbite. No underlying fracture. Discharge Plan Discharge Clinical Impression: Dog bite, Injury of elbow, right, Abrasion of right ear Patient Disposition: Home Condition: Stable Instructions: Antibiotic Form, Animal Bite (ED) Additional Instructions: TAKE MEDICATIONS PRESCRIBED RETURN FOR WORSENING SYMPTOMS OR WORSENING INFECTION SUTURES NEED TO BE REMOVED IN 10 DAYS Patient Language: Mauritanian Prescriptions: New amoxicillin-pot clavulanate 875-125 mg tablet 1 tablet PO Q12H Qty: 20 0RF Rx Instructions: START 10/26/2024 hydrocodone-acetaminophen 5-325 mg tablet 1 tablet PO Q6H PRN (Reason: pain) Qty: 14 0RF No Action oxycodone-acetaminophen [Percocet] 5-325 mg tablet 1 tablet PO Q6H PRN (Reason: pain) Qty: 14 0RF omeprazole 40 mg capsule,delayed release(DR/EC) 40 mg PO DAILY 60 Days Qty: 60 3RF omeprazole 40 mg capsule,delayed release(DR/EC) 40 mg PO DAILY Qty: 30 3RF Rx Instructions: Take on an empty stomach. Follow-up/Referrals: PHYSICIAN,IT DESKTOP SUPPORT TECHNICIAN [Primary Care Provider, Internal Medicine] Time of Disposition: 20:58
--- OUTSIDE RECORDS SUMMARY | 2024-10-25 20:20 | XMS_ITS | Encounter Summary ---
Author Organization [facility] Address [address] [place] [address] Care Team Providers Care Graphic Art Technician Name Role Phone Estevan Sabillon MD Primary Care Provider Ibrahima enamorado Encounter Details Date Type Department Care Team (Latest Contact Info) Description 01/08/2018 Abstract [facility] , Tatiana Coates MD [...] on filedocumented in this encounter Care Teams Graphic Art Technician Relationship Specialty Start Date End Date Estevan Sabillon MD PCP - General 09/17/14 documented as of this encounter
--- OUTSIDE RECORDS SUMMARY | 2024-10-25 20:20 | XMS_ITS | Clinical Summary ---
Author Organization [facility] Address [address] [place] [address] Care Team Providers Care Aluminum Boat Inspector Name Role Phone Rich Guevara RN Primary Care Provider Ibrahima enamorado Source Comments [facility]non-owned Affiliates and Associated Physician Practices is amultiple site organization consisting of ambulatory clinics and hospital sitesin [place], [place], [place] and [place]. This disclosure is being madepursuant to the Care Everywhere program and may not contain all information available regarding this patient. Last updated 17.[facility] 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 Gender Identity Not on file Sexual Orientation Not on file Last Filed Vital Signs Vital Sign Reading Time Taken Comments Blood Pressure - - Pulse - - Temperature - - Respiratory Rate - - Oxygen Saturation - - Inhaled Oxygen Concentration - - Weight 65.8 kg (145 lb) 04/17/2016 10:12 AM WALLPAPER PRINTER Height 167.6 cm (5' 6) 04/17/2016 10:12 AM WALLPAPER PRINTER Body Mass Index 23.4 04/17/2016 10:12 AM WALLPAPER PRINTER Plan of Treatment Health Maintenance Due Date [...] GASTELUM Subscriber ID:Not on file (Home) Address: [address] [place] [address] Payer ID:Not on file Group ID:Not on file Type:Self Pay Address: [place], [place] Care Teams Aluminum Boat Inspector Relationship Specialty Start Date End Date Rich Guevara RN PCP - General 04/17/16
--- OUTSIDE RECORDS SUMMARY | 2024-10-25 20:20 | XMS_ITS | Clinical Summary ---
Author Organization [facility] Address [address] [place] [address] Care Team Providers Care Phone Technician Name Role Phone Estevan Sabillon MD Primary Care Provider Ibrahima lable Allergies No known active allergies Medications No known medications Active Problems Problem Noted Date Diagnosed Date Purposeful non-suicidal drug ingestion, initial encounter ([facility]) 04/28/2018 Immunizations Immunization Administration Dates Next Due [...] Comments Blood Pressure 126/77 04/30/2018 3:12 PM FOREIGN EXCHANGE SERVICES MANAGER Pulse 89 04/30/2018 3:12 PM FOREIGN EXCHANGE SERVICES MANAGER Temperature 36.4 C (97.5 F) 04/30/2018 3:12 PM FOREIGN EXCHANGE SERVICES MANAGER Respiratory Rate 17 04/30/2018 3:12 PM FOREIGN EXCHANGE SERVICES MANAGER Oxygen Saturation 96% 04/30/2018 3:12 PM FOREIGN EXCHANGE SERVICES MANAGER Inhaled Oxygen Concentration - - Weight 69 kg (152 lb 1.9 oz) 04/30/2018 5:00 AM FOREIGN EXCHANGE SERVICES MANAGER Height 165.1 cm (5' 5) 04/28/2018 5:32 AM FOREIGN EXCHANGE SERVICES MANAGER Body Mass Index 25.31 04/28/2018 5:32 AM FOREIGN EXCHANGE SERVICES MANAGER Plan of Treatment Health Maintenance Due [...] 10:30 AM 04/30/2018 10:24 PM Care Teams Phone Technician Relationship Specialty Start Date End Date Estevan Sabillon MD PCP - General 09/17/14
--- OUTSIDE RECORDS SUMMARY | 2024-10-25 20:20 | XMS_ITS | Clinical Summary ---
Author Organization [facility] Address [address] [place] [address] Phone Care Team Providers Care Furnace Combination Analyst Name Role Phone Unavailable Primary Care Provider [...] on file Legal Sex Male 9:43 AM HEEL SEAT POUNDER Gender Identity Not on file Sexual Orientation [...] age to complete this topic Insurance MEDICAID [facility] PL[facility]
--- OUTSIDE RECORDS SUMMARY | 2024-10-25 20:20 | XMS_ITS | Clinical Summary ---
Author Organization [facility] Address [address] [place] [address] Phone Care Team Providers Care Pedorthist Name Role Phone Muna Jorge BEHZDA Primary Care Provider [phone] Allergies No known active allergies Medications omeprazole [...] Department Care Team Description 08/04/2024 Orders Only [facility] Gastroenterology at [address] [place] [address] Arnol Santos MD Dysphagia, unspecified type (Primary Dx); Screening for colon cancer 07/30/2024 Telephone [facility] Gastroenterology at [address] [place] [address] Arnol Santos MD 07/29/2024 Orders Only [facility] Gastroenterology at [address] [place] [address] Arnol Santos MD Dysphagia, unspecified type (Primary [...] on file 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 Gender Identity Not on file Sexual Orientation [...] 1:30 PM CDT 06/24/2024 10:10 PM CDT [employer] RETAIL MANAGER LAB BLOOD ORDERABLES Final Re sult Performing Organization Address [facility] Co de Phone Number ANJU AMBROCIO [id number] [place] [address] * Hepatitis C antibody Blood [...] GENERAL OR DERABLES Final Result ANEESHEVIN AMBROCIO [id number] [place] [place] [address] from Last 3 Months or Most Recently Relevant to Health Maintenance Insurance [facility] [place] [address] Care Teams Pedorthist Relationship Specialty Start Date End Date Muna Jorge NP [address] [address] PCP - General Internal Medicine 06/24/24
[2024-10-25 21:06] VITALS: BP 125/78; PULSE 90; RESP 18; TEMP 36.7; O2SAT 100
== END 2024-10-25 21:08 | disposition home or self-care (01) ==
PROVIDERS: Emergency Provider Nurse Practitioner Family
DX: S51.051A Open bite, right elbow, initial encounter (principal); S00.411A Abrasion of right ear, initial encounter; M10.9 Gout, unspecified; F17.200 Nicotine dependence, unspecified, uncomplicated; W54.0XXA Bitten by dog, initial encounter
CPT/HCPCS: 12002; 73080; 96365; 99284; A9270; J0295

== ENCOUNTER 2024-11-09 16:18 | Emergency (ER) | payer OTHER, SELFPAY ==
--- OUTSIDE RECORDS SUMMARY | 2013-07-06 12:27 | XMS_ITS | Continuity of Care Document ---
Author Organization [facility] Address [address] [place] [address] [place] [address] Phone Care Team Providers Care Nurse Intern Name Role Phone Chandler Miller MD Unavailable [...] Diagnoses Date Provider Providers Copied on Encounter [facility], [address] [place], [address], tel:[phone] [facility] No Information 4 Paul Arteaga. [address], [place], [place], [address] , [place]. tel:[phone] Referring Provider: Chandler Miller, [address], [place], [place], [address]. tel:[phone] OFFICE/OUTPAT IENT VISIT, EST [facility], [address] [place], [address], tel:[phone] [facility] back pain (chief complaint) hematuria (chief complaint) anxiety (chief complaint) LumbagoMajor depressive affective disorder, single episode, mild degreeHEMATURIA NOS 4 Paul Arteaga. [address] [facility] [place], [address] , . tel:[phone] Referring Provider: Chandler Miller [address], [place], [place], [address]. tel:[phone] PREV VISIT, NEW, AGE 40-64 [facility], [address], [place], [place], [address], [phone] [facility] Physical (chief complaint) Routine Medical ExamRoutine Medical Exam 4 Paul Arteaga. [address], [facility] [place], [address] , [place]. tel:[phone] Family History Family Member Type Diagnosis Age At Onset Mother Problem (finding) Coronary artery disease Mother Problem (finding) Other Sister Problem (finding) Cancer, brain Mother Problem (finding) Cancer, breast Father Problem (finding) Alzheimer's Disease Payers Payer name Insurance type Covered republican ID Authoriza tion(s) No Information Social History [...]
--- OUTSIDE RECORDS SUMMARY | 2013-07-06 12:27 | XMS_ITS | Continuity of Care Document ---
Author Organization [facility] Address [address] [place] [address] [place] [address] Phone Care Team Providers Care Customer Service Attendant Name Role Phone Chandler Miller MD Unavailable [...] Diagnoses Date Provider Providers Copied on Encounter [facility], [address] [place], [address], tel:[phone] [facility] No Information 4 Paul Arteaga. [address], [place], [place], [address] , [place]. tel:[phone] Referring Provider: Chandler Miller, [address], [place], [place], [address]. tel:[phone] OFFICE/OUTPAT IENT VISIT, EST [facility], [address] [place], [address], tel:[phone] [facility] back pain (chief complaint) hematuria (chief complaint) anxiety (chief complaint) LumbagoMajor depressive affective disorder, single episode, mild degreeHEMATURIA NOS 4 Paul Arteaga. [address] [facility] [place], [address] , . tel:[phone] Referring Provider: Chandler Miller [address], [place], [place], [address]. tel:[phone] PREV VISIT, NEW, AGE 40-64 [facility], [address], [place], [place], [address], [phone] [facility] Physical (chief complaint) Routine Medical ExamRoutine Medical Exam 4 Paul Arteaga. [address], [facility] [place], [address] , [place]. tel:[phone] Family History Family Member Type Diagnosis Age At Onset Mother Problem (finding) Coronary artery disease Mother Problem (finding) Other Sister Problem (finding) Cancer, brain Mother Problem (finding) Cancer, breast Father Problem (finding) Alzheimer's Disease Payers Payer name Insurance type Covered green party ID Authoriza tion(s) No Information Social [...]
--- OUTSIDE RECORDS SUMMARY | 2024-11-09 16:21 | XMS_ITS | Encounter Summary ---
Author Organization [facility] Address [address] [place] [address] Care Team Providers Care Specialist Managers Name Role Phone Estevan Sabillon MD Primary Care Provider Ibrahima enamorado Encounter Details Date Type Department Care Team (Latest Contact Info) Description 01/08/2018 Abstract [facility] , Tatiana Coates MD [...] on filedocumented in this encounter Care Teams Specialist Managers Relationship Specialty Start Date End Date Estevan Sabillon MD PCP - General 09/17/14 documented as of this encounter
--- OUTSIDE RECORDS SUMMARY | 2024-11-09 16:21 | XMS_ITS | Clinical Summary ---
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 Gender Identity Not on file Sexual Orientation [...] Virus (HCV) Screening 1965 TdaP Immunization 1964 Cologuard 2009 Colonoscopy 2009 Colorectal Cancer Screening 2009 Immunochemical Fecal Occult Blood 2009 Pneumococcal Immunization (5 0+ years) (1 of 1 - PCV) 2014 Zoster Immunization (1 of 2) 2014 Influenza Immunization (#1) 2024 SARS-COV-2 Immunization ( - season) 2024 Respiratory Syncytial Virus (RSV) Immunization (Adult) (1 - 1-dose 75+ series) 11/02/2039 Hepatitis B Immunization Aged Out No longer eligible based on patient's age to complete this topic Human Papillomavirus (HPV) Immunization Aged Out No longer eligible b ased on patient's age to complete this topic Meningococcal Immunization (ACWY) Aged Out No longer eligible based on patient's age to complete this topic Rotavirus Immunization Aged Out No lo nger eligible based on patient's age to complete this topic Insurance MEDICAID [facility] PLAN
--- OUTSIDE RECORDS SUMMARY | 2024-11-09 16:21 | XMS_ITS | Clinical Summary ---
Author Organization [facility] Address [address] [place] [address] Care Team Providers Care Food Clerk Name Role Phone Estevan Sabillon MD Primary Care Provider Ibrahima lable Allergies No known active allergies Medications No known medications Active Problems Problem Noted Date Diagnosed Date Purposeful non-suicidal drug ingestion, initial encounter ([facility]) 04/28/2018 Immunizations Immunization Administration Dates Next [...] Comments Blood Pressure 126/77 04/30/2018 3:12 PM MACHINE SETTER AUTOMATIC Pulse 89 04/30/2018 3:12 PM MACHINE SETTER AUTOMATIC Temperature 36.4 C (97.5 F) 04/30/2018 3:12 PM MACHINE SETTER AUTOMATIC Respiratory Rate 17 04/30/2018 3:12 PM MACHINE SETTER AUTOMATIC Oxygen Saturation 96% 04/30/2018 3:12 PM MACHINE SETTER AUTOMATIC Inhaled Oxygen Concentration - - Weight 69 kg (152 lb 1.9 oz) 04/30/2018 5:00 AM MACHINE SETTER AUTOMATIC Height 165.1 cm (5' 5) 04/28/2018 5:32 AM MACHINE SETTER AUTOMATIC Body Mass Index 25.31 04/28/2018 5:32 AM MACHINE SETTER AUTOMATIC Plan of Treatment Health Maintenance Due Date Last Done Comments Colorectal Cancer Screening Colonoscopy (10 Years) 1964 Annual Physical 11/02/1967 Hepatitis C 1982 DTaP, Tdap and Td Vaccines ( 1 - Tdap) 11/02/1983 Pneumococcal Vaccine: 50+ Ye ars (1 of 2 - PCV) 11/02/1983 Zoster Vaccines (1 of 2) 2014 COVID-19 Vaccine (1 - 2023-2 5 season) 2024 RSV Immunization or 60+ Years (1 - 1-dose 75+ series) 11/02/2039 Meningococcal B Vaccine Aged Out No l [...] 10:30 AM 04/30/2018 10:24 PM Care Teams Food Clerk Relationship Specialty Start Date End Date Estevan Sabillon MD PCP - General 09/17/14
--- OUTSIDE RECORDS SUMMARY | 2024-11-09 16:21 | XMS_ITS | Clinical Summary ---
Author Organization [facility] Address [address] [place] [address] Care Team Providers Care Wage And Salary Specialist Name Role Phone Rich Guevara RN Primary Care Provider Ibrahima enamorado Source Comments [facility],non-owned Affiliates and Associated Physician Practices is amultiple site organization consisting of ambulatory clinics and hospital sitesin [place], [place], [place] and [place]. This disclosure is being madepursuant to the Care Everywhere program and may not contain all information available regarding this patient. 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 Gender Identity Not on file Sexual Orientation Not on file Last Filed Vital Signs Vital Sign Reading Time Taken Comments Blood Pressure - - Pulse - - Temperature - - Respiratory Rate - - Oxygen Saturation - - Inhaled Oxygen Concentration - - Weight 65.8 kg (145 lb) 04/17/2016 10:12 AM MERCHANDISING DIRECTOR Height 167.6 cm (5' 6) 04/17/2016 10:12 AM MERCHANDISING DIRECTOR Body Mass Index 23.4 04/17/2016 10:12 AM MERCHANDISING DIRECTOR Plan of Treatment Health Maintenance Due Date [...] 10/28/1982 DTAP/TDAP/TD VACCINES (1 - Tdap) 11/02/1983 PNEUMOCOCCAL VACCINE 50+ (1 of 2 - PCV) 11/02/1983 ZOSTER VACCINE (1 of 2) 2014 DEPRESSION SCREENING 03/05/2024 COVID-19 VACCINE (1 - 2023-2 5 season) 2024 INFLUENZA VACCINE (#1) 2024 Respiratory Syncytial Virus (RSV) Vaccine Pt: or over 60 yrs (1 - 1-dose 75+ series) 11/02/2039 HEPATITIS B VACCINE Aged Out No longe r eligible based on patient's age to complete this topic HIB VACCINE Aged Out No longer eligi [...] GASTELUM Subscriber ID:Not on file (Home) Address: [address] [place] [address] Payer ID:Not on file Group ID:Not on file Type:Self Pay Address: [place], [place] Care Teams Wage And Salary Specialist Relationship Specialty Start Date End Date Rich Guevara, RN PCP - General 04/17/16
--- OUTSIDE RECORDS SUMMARY | 2024-11-09 16:21 | XMS_ITS | Clinical Summary ---
Author Organization 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 Gender Identity Not on file Sexual Orientation [...] 1:30 PM CDT 06/24/2024 10:10 PM CDT us Muna Jorge NP LAB BLOOD ORDERABLES Final Re sult ANJU [id number] [place] [address] * Hepatitis C antibody Blood [...] MICROBIOLOGY - GENERAL OR DERABLES Final Result Performing Organization Address City/State/ZIP Co mn Phone Number [facility] [address] [place] [address] from Last 3 Months or Most Recently Relevant to Health Maintenance Insurance Care Teams Maintenance Mechanic Telephone Relationship Specialty Start Date End Date Muna Jorge NP [address] [facility] [address] [place] [address] PCP - General Internal Medicine 06/24/24
[2024-11-09 16:42] VITALS: BP 140/74; PULSE 105; RESP 18; TEMP 36.6; O2SAT 100
--- NOTE | 2024-11-09 17:01 | ED.SKABFB ---
HPI - Skin/Abscess/Foreign Bdy General Chief complaint: Unspecified Stated complaint: need stitches removed Time Seen by Provider: 11/09/24 16:33 Source: patient Mode of arrival: ambulatory Limitations: no limitations History of Present Illness HPI narrative: Patient presents for suture removal. On 10/25/2024 he had stitches placed at right elbow due to a dog bite. At that time his tetanus status was updated. He was given a 1 time dose of IV Unasyn followed by Augmentin. He states he completed that course. He states he was told that the sutures were to remain in place for 10 days but there was a delay in him being able to present for removal. He denies any fevers or chills. He states that there had been a scab but it itches (as well as another scab noted under forearm). He noticed a large portion of the scab came off. Denies IVDU or history of MRSA> Related Data Allergies Allergy/AdvReac Type Severity Reaction Status Date / Time No Known Allergies Allergy Verified 09/11/24 07:44 [facility] Past Medical History Medical History (Updated 11/09/24 @ 17:07 by Gloria Pham MD) Food impaction of esophagus Chronic back pain Depression Gout Tobacco abuse Spinal cord cancer Surgical History Surgical History (Updated 11/09/24 @ 17:07 by Gloria Pham MD) H/O Spinal surgery pediatric; [facility] of tonsillectomy Family History Family History (System 09/11/24 @ 07:44 by Lizeth Frazier) Mother Patient's mother is in good health Family history of malignant neoplasm of breast in first degree relative Family history of heart disease in male family member before age 55 Father Patient's father is in good health Social History Social History Smoking status: Current every day smoker Second hand tobacco smoke exposure: Yes Alcohol intake: never Other substance usage details: denies IVDU Living arrangements: alone Occupation/Education: unemployed Gender identity (if verbalized by the patient): Male Exam Narrative: GENERAL: Well-appearing, well-nourished, and in no acute distress. HEAD: Normocephalic, atraumatic. EYES: Non injected, non icteric ENT: Nares clear, no rhinorrhea or epistaxis. Gross auditory acuity intact. NECK: Supple. No meningismus. CHEST: Speaking in full sentences. No respiratory distress. HEART: Tachycardic rate and rhythm. . ABDOMEN: Soft, nondistended. EXTREMITIES: Normal range of motion. No upper extremity edema. Warm and well perfused extremity. SKIN: Warm, dry. No mottling. Well healing scab on underside of forearm. Larger wound at right elbow well healing although slightly gaping with some sutures partially buried in scab and granulation tissue, approximately 2cm x 3cm. Slight firmness of side of wound. There is an area of white purulent discharge. NEURO: No focal deficits. Alert and oriented. Answering questions. Following commands. Normal speech without aphasia or dysarthria. PSYCH: Normal mood and affect. Course Vital Signs Vital signs: Vital Signs Temperature 97.8 F 11/09/24 16:42 Pulse Rate 105 H 11/09/24 16:42 Respiratory Rate 18 11/09/24 16:42 Blood Pressure 140/74 11/09/24 16:42 Pulse Oximetry 100 11/09/24 16:42 Oxygen Delivery Room Air 11/09/24 16:42 Temperature 97.8 F 11/09/24 16:42 Pulse Rate 105 H 11/09/24 16:42 Respiratory Rate 18 11/09/24 16:42 Blood Pressure 140/74 11/09/24 16:42 Pulse Oximetry 100 11/09/24 16:42 Oxygen Delivery Room Air 11/09/24 16:42 MDM - Skin/Abscess/Foreign Bdy MDM Narrative Medical decision making narrative: Patient presents for suture removal. In the emergency department he is afebrile with vital signs notable for mild tachycardia. Wound mostly appears to be healing well although it has combination of scab, granulation tissue, and some white purulent discharge at a subcentimeter area. 4 sutures are removed and there do not appear to be any others after thorough review. I suspect one already came out and patient confirms this is possible. Given the concern that there is a small area of superimposed infection, wound culture obtained and patient given 1st dose of cephalexin with rest of course prescribed. Wound was cleansed at bedside and irrigated. Triple antibiotic applied and wound bandaged. Advised follow-up with primary care physician and educated on wound care. Medical Records Attestation: I reviewed the patient's medical records. Medical records narrative: Reviewed note from 10/25/2024 which showed patient's tetanus status was updated that day and he had 5 simple interrupted 5-0 sutures placed. Recieved 1 dose Unasyn and Rx Augmentin. Discharge Plan Discharge Clinical Impression: Encounter for removal of sutures, Infected wound Patient Disposition: Home Condition: Stable Instructions: Antibiotic Form, Acute Wounds (DC) Additional Instructions: Keep the wound clean warm and dry. Warm soapy water is fine but make sure it was fully dry before applying a new bandage. Take a course of antibiotics as prescribed. Follow-up with your primary care physician and return to the emergency department with any new or worsening symptoms. Patient Language: Canadian Prescriptions: New cephalexin 500 mg capsule 500 mg PO Q6H 5 Days Qty: 19 0RF Rx Instructions: rec'd first dose in ED 11/09 5pm No Action oxycodone-acetaminophen [Percocet] 5-325 mg tablet 1 tablet PO Q6H PRN (Reason: pain) Qty: 14 0RF omeprazole 40 mg capsule,delayed release(DR/EC) 40 mg PO DAILY 60 Days Qty: 60 3RF omeprazole 40 mg capsule,delayed release(DR/EC) 40 mg PO DAILY Qty: 30 3RF Rx Instructions: Take on an empty stomach. amoxicillin-pot clavulanate 875-125 mg tablet 1 tablet PO Q12H Qty: 20 0RF Rx Instructions: START 10/26/2024 hydrocodone-acetaminophen 5-325 mg tablet 1 tablet PO Q6H PRN (Reason: pain) Qty: 14 0RF Follow-up/Referrals: PHYSICIAN,CRIMINAL DEFENSE ATTORNEY [Primary Care Provider, Internal Medicine] Stand Alone Forms: Work/School Release IP Time of Disposition: 17:03
--- OUTSIDE RECORDS SUMMARY | 2024-11-09 17:08 | XMS_ITS | Clinical Summary ---
Author Organization [facility] Address [address] [place] [address] Care Team Providers Care Interior Assemblies Developer Prover Name Role Phone Estevan Sabillon MD Primary Care Provider Ibrahima lable Allergies No known active allergies Medications No known medications Active Problems Problem Noted Date Diagnosed Date Purposeful non-suicidal drug ingestion, initial encounter ([facility]) 04/28/2018 Immunizations Immunization Administration Dates Next [...] Comments Blood Pressure 126/77 04/30/2018 3:12 PM CYCLE DIRECTOR Pulse 89 04/30/2018 3:12 PM CYCLE DIRECTOR Temperature 36.4 C (97.5 F) 04/30/2018 3:12 PM CYCLE DIRECTOR Respiratory Rate 17 04/30/2018 3:12 PM CYCLE DIRECTOR Oxygen Saturation 96% 04/30/2018 3:12 PM CYCLE DIRECTOR Inhaled Oxygen Concentration - - Weight 69 kg (152 lb 1.9 oz) 04/30/2018 5:00 AM CYCLE DIRECTOR Height 165.1 cm (5' 5) 04/28/2018 5:32 AM CYCLE DIRECTOR Body Mass Index 25.31 04/28/2018 5:32 AM CYCLE DIRECTOR Plan of Treatment Health Maintenance Due [...] 10:30 AM 04/30/2018 10:24 PM Care Teams Interior Assemblies Developer Prover Relationship Specialty Start Date End Date Estevan Sabillon MD PCP - General 09/17/14
--- OUTSIDE RECORDS SUMMARY | 2024-11-09 17:08 | XMS_ITS | Clinical Summary ---
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 [address] Department [place] [address] from Last 3 Months or Most Recently Relevant to Health Maintenance Insurance Care Teams Cover Machine Operator Relationship Specialty Start Date End Date Muna Jorge NP [address] [facility] [address] [place] [address] PCP - General Internal Medicine 06/24/24
--- OUTSIDE RECORDS SUMMARY | 2024-11-09 17:08 | XMS_ITS | Clinical Summary ---
Author Organization [facility] Address [address] [place] [address] Care Team Providers Care Commercial Lines Account Manager Name Role Phone Rich Guevara RN Primary Care Provider Ibrahima enamorado Source Comments [facility],non-owned Affiliates and Associated Physician Practices is amultiple site organization consisting of ambulatory clinics and hospital sitesin [place], [place], [place] and [place]. This disclosure is being madepursuant to the Care Everywhere program and may not contain all information available regarding this patient. 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 Gender Identity Not on file Sexual Orientation Not on file Last Filed Vital Signs Vital Sign Reading Time Taken Comments Blood Pressure - - Pulse - - Temperature - - Respiratory Rate - - Oxygen Saturation - - Inhaled Oxygen Concentration - - Weight 65.8 kg (145 lb) 04/17/2016 10:12 AM TELETYPEWRITER INSTALLER Height 167.6 cm (5' 6) 04/17/2016 10:12 AM TELETYPEWRITER INSTALLER Body Mass Index 23.4 04/17/2016 10:12 AM TELETYPEWRITER INSTALLER Plan of Treatment Health Maintenance Due Date [...] GASTELUM Subscriber ID:Not on file (Home) Address: [address] [place] [address] Payer ID:Not on file Group ID:Not on file Type:Self Pay Address: [place], [place] Care Teams Commercial Lines Account Manager Relationship Specialty Start Date End Date Rich Guevara, RN PCP - General 04/17/16
--- OUTSIDE RECORDS SUMMARY | 2024-11-09 17:08 | XMS_ITS | Encounter Summary ---
Author Organization [facility] Address [address] [place] [address] Care Team Providers Care Director Of Casino Marketing Name Role Phone Estevan Sabillon MD Primary Care Provider Ibrahima enamorado Encounter Details Date Type Department Care Team (Latest Contact Info) Description 01/08/2018 Abstract [facility] , Tatiana Coates MD [...] on filedocumented in this encounter Care Teams Director Of Casino Marketing Relationship Specialty Start Date End Date Estevan Sabillon MD PCP - General 09/17/14 documented as of this encounter
--- OUTSIDE RECORDS SUMMARY | 2024-11-09 17:08 | XMS_ITS | Clinical Summary ---
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
[2024-11-09] MEDS: CEPHALEXIN 500 MG CAPSULE PO (17:14)
== END 2024-11-09 17:15 | disposition home or self-care (01) ==
PROVIDERS: Emergency Provider Student in an Organized Health Care Education/Training Program
DX: L08.9 Local infection of the skin and subcutaneous tissue, unspecified (principal); Z48.02 Encounter for removal of sutures; F32.A Depression, unspecified; G89.29 Other chronic pain
CPT/HCPCS: 15853; 99283; A9270